=== PATIENT | female | born 2000 | race Two or more races ===

== ENCOUNTER 2025-02-20 20:36 | Emergency (ER) | payer SELFPAY ==
[2025-02-20] MEDS: Diphtheria,Pertussis(Acell),Tetanus Vaccine 0.5 ML Syringe IM ONE (21:22)
[2025-02-20] MEDS: Amoxicillin/Clavulanate K 875-125 MG Tab PO ONE (21:22)
[2025-02-20] MEDS: Bacitracin Oint 1 GM U/D Packet TOP ONE (21:23)
== END 2025-02-20 21:42 | disposition home or self-care (01) ==
LOC: FB.ED 20:36
DX: S61.552A Open bite of left wrist, initial encounter (principal); F17.290 Nicotine dependence, other tobacco product, uncomplicated; Z79.899 Other long term (current) drug therapy; W54.0XXA Bitten by dog, initial encounter; Y93.89 Activity, other specified
CPT/HCPCS: 90471; 90715; 99283; A9270